=== PATIENT | male | born 1960 | race Caucasian/White ===

== ENCOUNTER 2023-12-20 20:27 | Emergency (ER) | payer BC ==
[~2023-12-20] VITALS: Ht 188 cm; Wt 111.1 kg
[~2023-12-20 20:27] MED LIST: ATENOLOL50 MG PO; EMERGEN C PO; FENOFIBRATE145 MG PO; GLIPIZIDE XL10 MG PO; JANUMET 50-1,01 EACH PO; LISINOPRIL10 MG PO; [UNRECOGNIZED DRUG - OTHER] PO
[2023-12-20 20:51] VITALS: PULSE 63; RESP 18; TEMP 98.3; O2SAT 95
[2023-12-20] MEDS ORDERED: TYLENOL325 MG PO (21:01)
== END 2023-12-20 21:05 | disposition home or self-care (01) ==
LOC: FSED 20:33
DX: S90.31XA Contusion of right foot, initial encounter (principal); I83.93 Asymptomatic varicose veins of bilateral lower extremities; I10 Essential (primary) hypertension; F17.200 Nicotine dependence, unspecified, uncomplicated; X58.XXXA Exposure to other specified factors, initial encounter; Z88.2 Allergy status to sulfonamides; Z79.84 Long term (current) use of oral hypoglycemic drugs; Z79.899 Other long term (current) drug therapy
CPT/HCPCS: 99283